=== PATIENT | female | born 1945 | race Caucasian/White ===

== ENCOUNTER 2016-12-19 18:55 | Inpatient (IN) | payer OTHER ==
[2016-12-19 20:29] LABS: BASOPHIL 0.5 % (0-2); EOSINOPHIL 0.1 % (0-7); HCT 33.6 % (37.0-47.0); HGB 10.9 g/dl (12.5-16.0); LYMPHOCYTE 9.3 % (15-48); MCH 26.9 pg (25.0-31.0); MCHC 32.4 g/dL (32.0-36.0); MONOCYTE 6.3 % (0-12); MPV 11.5 fL (6.0-9.5); NEUTROPHIL 83.8 % (41-80); PLT 157 K/uL (150-400); RBC 4.05 M/uL (4.20-5.40); RDW 15.5 % (11.5-14.0)
[2016-12-19 20:38] LABS: BILIRUBIN NEGATIVE (NEGATIVE); BLOOD TRACE-INTACT Ery/uL (NEGATIVE); CLARITY SLIGHTLY HAZY (CLEAR); COLOR YELLOW (YELLOW); GLUCOSE (U) NORMAL (NORMAL); KETONE (U) NEGATIVE (NEGATIVE); LEUKOCYTES TRACE Leu/uL (NEGATIVE); NITRITE POSITIVE (NEGATIVE); PROTEIN NEGATIVE (NEGATIVE); UROBILINOGEN 0.2 mg/dL (0.2-1.0); pH 5.5 (5.0-9.0)
[2016-12-19 20:38] LABS: INR 1.08 (0.9-1.2); PROTHROMBIN TIME 13.6 SECONDS (11.7-14.0)
[2016-12-19 20:43] LABS: BACTERIA 2+; SQUAMOUS EPITHELIAL CELLS RARE
[2016-12-19 20:44] LABS: ALBUMIN 4.5 g/dL (3.4-4.8); BILIRUBIN - TOTAL 0.4 mg/dL (0.1-1.0); CREATININE 0.7 mg/dL (0.5-1.0); POTASSIUM 3.5 mmol/L (3.5-5.1); TOTAL PROTEIN 6.5 g/dL (6.4-8.3)
[2016-12-20 04:21] LABS: HCT 29.8 % (37.0-47.0); HGB 9.5 g/dl (12.5-16.0); MCH 26.8 pg (25.0-31.0); MCHC 31.9 g/dL (32.0-36.0); MCV 84.2 fL (78.0-100.0); MPV 11.2 fL (6.0-9.5); RBC 3.54 M/uL (4.20-5.40); RDW 15.5 % (11.5-14.0)
[2016-12-20 04:33] LABS: CREATININE 0.7 mg/dL (0.5-1.0)
[2016-12-20 08:28] LABS: RETICULOCYTE COUNT 1.6 % (1.0-2.0)
[2016-12-20 08:36] LABS: IRON 22 ug/dL (44-196); IRON % SATURATION 8 %SAT (20-50); TIBC (TOTAL IRON + UIBC) 261 U/L (228-428); UIBC 239 ug/dL (112-346)
[2016-12-20 09:51] LABS: FOLIC ACID (SERUM) 16.8 ng/mL (5.6-45.8)
[2016-12-21 04:42] LABS: BASOPHIL 0.8 % (0-2); EOSINOPHIL 0.1 % (0-7); HCT 29.5 % (37.0-47.0); HGB 9.4 g/dl (12.5-16.0); LYMPHOCYTE 19.4 % (15-48); MCH 27.2 pg (25.0-31.0); MCHC 31.9 g/dL (32.0-36.0); MCV 85.5 fL (78.0-100.0); MONOCYTE 13.7 % (0-12); MPV 11.1 fL (6.0-9.5); PLT 144 K/uL (150-400); RBC 3.45 M/uL (4.20-5.40); RDW 15.5 % (11.5-14.0)
[2016-12-21 04:43] LABS: WBC 7.8 K/uL (4.0-10.5)
[2016-12-21 05:02] LABS: CREATININE 0.7 mg/dL (0.5-1.0); MAGNESIUM 1.45 mg/dL (1.40-2.10)
[2016-12-22 07:02] LABS: HCT 19.9 % (37.0-47.0); MCH 27.4 pg (25.0-31.0); MCHC 31.7 g/dL (32.0-36.0); MCV 86.5 fL (78.0-100.0); RBC 2.3 M/uL (4.20-5.40); RDW 15.8 % (11.5-14.0); WBC 6.8 K/uL (4.0-10.5)
[2016-12-22 07:05] LABS: HGB 6.3 g/dl (12.5-16.0)
[2016-12-22 08:15] LABS: CREATININE 0.7 mg/dL (0.5-1.0); MAGNESIUM 1.36 mg/dL (1.40-2.10); POTASSIUM 3.7 mmol/L (3.5-5.1)
[2016-12-23 05:54] LABS: BASOPHIL 0.4 % (0-2); EOSINOPHIL 0.5 % (0-7); HCT 26.6 % (37.0-47.0); LYMPHOCYTE 12.7 % (15-48); MCH 27.7 pg (25.0-31.0); MCHC 32.3 g/dL (32.0-36.0); MCV 85.5 fL (78.0-100.0); MPV 11.6 fL (6.0-9.5); NEUTROPHIL 72.4 % (41-80); PLT 144 K/uL (150-400); RBC 3.11 M/uL (4.20-5.40); RDW 15.7 % (11.5-14.0); WBC 9.7 K/uL (4.0-10.5)
[2016-12-23 06:02] LABS: HGB 8.6 g/dl (12.5-16.0)
[2016-12-23 06:13] LABS: CREATININE 0.7 mg/dL (0.5-1.0); MAGNESIUM 1.55 mg/dL (1.40-2.10)
[2016-12-24 04:45] LABS: HCT 24.7 % (37.0-47.0); MCH 27.8 pg (25.0-31.0); MPV 10.5 fL (6.0-9.5); RBC 2.84 M/uL (4.20-5.40); RDW 16.2 % (11.5-14.0); WBC 7.3 K/uL (4.0-10.5)
[2016-12-24 04:51] LABS: HGB 7.9 g/dl (12.5-16.0)
[2016-12-24 05:05] LABS: CREATININE 0.7 mg/dL (0.5-1.0); POTASSIUM 4.3 mmol/L (3.5-5.1)
[2016-12-25 05:23] LABS: HGB 7.9 g/dl (12.5-16.0); MCH 27.7 pg (25.0-31.0); MCHC 31.6 g/dL (32.0-36.0); MCV 87.7 fL (78.0-100.0); MPV 10.5 fL (6.0-9.5); RBC 2.85 M/uL (4.20-5.40); RDW 16.3 % (11.5-14.0)
[2016-12-26 05:26] LABS: HGB 8.2 g/dl (12.5-16.0); MCH 27.8 pg (25.0-31.0); MCHC 31.5 g/dL (32.0-36.0); MCV 88.1 fL (78.0-100.0); MPV 10.3 fL (6.0-9.5); RBC 2.95 M/uL (4.20-5.40); RDW 16.2 % (11.5-14.0); WBC 7.1 K/uL (4.0-10.5)
[2016-12-26 06:25] LABS: CREATININE 0.7 mg/dL (0.5-1.0); POTASSIUM 4.1 mmol/L (3.5-5.1)
== END 2016-12-26 14:32 | DRG 481 ==
LOC: FER 18:55 → FMS 20:50
PROVIDERS: Emergency Medicine; Internal Medicine; Internal Medicine Nephrology; Legal Medicine; ADMIT Internal Medicine
PROC: 0QS704Z Reposition Left Upper Femur with Internal Fixation Device, Open Approach (ICD-10-PCS; principal; 2016-12-21 11:30)
PROC: 30233N1 Transfusion of Nonautologous Red Blood Cells into Peripheral Vein, Percutaneous Approach (ICD-10-PCS; 2016-12-22)
PROC: 30233N1 Transfusion of Nonautologous Red Blood Cells into Peripheral Vein, Percutaneous Approach (ICD-10-PCS; 2016-12-23)
DX: S72.142A Displaced intertrochanteric fracture of left femur, initial encounter for closed fracture (principal); D62 Acute posthemorrhagic anemia; I27.2 Other secondary pulmonary hypertension; C50.912 Malignant neoplasm of unspecified site of left female breast; I95.9 Hypotension, unspecified; N39.0 Urinary tract infection, site not specified; I10 Essential (primary) hypertension; B96.20 Unspecified Escherichia coli [E. coli] as the cause of diseases classified elsewhere; E11.9 Type 2 diabetes mellitus without complications; D64.9 Anemia, unspecified; E55.9 Vitamin D deficiency, unspecified; W01.0XXA Fall on same level from slipping, tripping and stumbling without subsequent striking against object, initial encounter; E03.9 Hypothyroidism, unspecified; K21.9 Gastro-esophageal reflux disease without esophagitis; E78.00 Pure hypercholesterolemia, unspecified; M10.9 Gout, unspecified; M19.90 Unspecified osteoarthritis, unspecified site; Z88.2 Allergy status to sulfonamides; Z88.0 Allergy status to penicillin; Z88.6 Allergy status to analgesic agent; Z88.8 Allergy status to other drugs, medicaments and biological substances; Z88.5 Allergy status to narcotic agent; Z80.6 Family history of leukemia; Z80.8 Family history of malignant neoplasm of other organs or systems; D50.9 Iron deficiency anemia, unspecified; Z79.4 Long term (current) use of insulin; Z87.11 Personal history of peptic ulcer disease; M85.80 Other specified disorders of bone density and structure, unspecified site; Z98.42 Cataract extraction status, left eye; Z98.41 Cataract extraction status, right eye
CPT/HCPCS: 36415; 36430; 71010; 73501; 73502; 73700; 76000; 80048; 80053; 81001; 82607; 82746; 82962; 83540; 83550; 83735; 83880; 84443; 85025; 85044; 85610; 85730; 86850; 86900; 86901; 86922; 87076; 87088; 87186; 93005; 94010; 94640; 94760; 94762; 97110; 97116; 97163; 97167; 97530; 97530-GP; 97535; C1713; J0131; J1170; J1885; J1940; J1956; J2185; J2405; J2704; J2795; J2916; J3010; J3475; P9016

== ENCOUNTER 2016-12-26 14:39 | Inpatient (IN) | payer OTHER | END 2017-01-05 11:39 | disposition home health service (06) | DRG 560 | LOC: FSNU 14:39 | PROVIDERS: ADMIT Internal Medicine | DX: S72.002D Fracture of unspecified part of neck of left femur, subsequent encounter for closed fracture with routine healing (principal); D62 Acute posthemorrhagic anemia; I95.81 Postprocedural hypotension; N39.0 Urinary tract infection, site not specified; C50.919 Malignant neoplasm of unspecified site of unspecified female breast; B96.20 Unspecified Escherichia coli [E. coli] as the cause of diseases classified elsewhere; W01.0XXD Fall on same level from slipping, tripping and stumbling without subsequent striking against object, subsequent encounter; K21.9 Gastro-esophageal reflux disease without esophagitis; E11.9 Type 2 diabetes mellitus without complications; E03.9 Hypothyroidism, unspecified | CPT/HCPCS: 82962; 97110; 97116; 97163; 97166; 97530; 97530-GP; 97535 ==